=== PATIENT | male | born 1970 | race Caucasian/White ===

== ENCOUNTER 2022-01-14 07:57 | Day surgery (SDC) | payer BC ==
[~2022-01-14 07:57] MED LIST: Acetaminophen 325 MG Tab PO SCH; Lactated Ringers 1,000 ML IV SCH; Lidocaine 1%/Sod Bicarbonate in NS 8.4% 1 ML Syringe IDERM PRN; Pregabalin 25 MG Cap PO SCH; Sodium Chloride 0.9% 10 ML Syringe FLUSH PRN; Sodium Chloride 0.9% 10 ML Syringe FLUSH SCH; oxyCODONE ER 10 MG TAB.ER PO SCH
[2022-01-14] MEDS ORDERED: EPINEPHrine 1 MG/ML SDV ONE (07:59)
[2022-01-14] MEDS ORDERED: Ropivacaine 0.5% 5 MG/ML 30 ML SDV ONE (07:59)
[2022-01-14] MEDS ORDERED: Lidocaine 1%/Sod Bicarbonate in NS 8.4% 1 ML Syringe IDERM PRN (08:22)
[2022-01-14] MEDS ORDERED: Morphine 8 MG, EPINEPHrine 0.3 MG, Cefuroxime 750 MG, Ketorolac 30 MG, Sodium Chloride ... PRN ×5 (08:23)
[2022-01-14] MEDS ORDERED: Sodium Chloride 0.9% 10 ML Syringe FLUSH PRN (08:24)
[2022-01-14] MEDS ORDERED: Acetaminophen 325 MG Tab PO SCH (08:30)
[2022-01-14] MEDS ORDERED: Lactated Ringers 1,000 ML IV SCH (08:30)
[2022-01-14] MEDS ORDERED: Pregabalin 25 MG Cap PO SCH (08:30)
[2022-01-14] MEDS ORDERED: oxyCODONE ER 10 MG TAB.ER PO SCH (08:30)
[2022-01-14] MEDS ORDERED: Ondansetron 4 MG/2 ML SDV IVPUSH PRN ×2 (09:35→11:10)
[2022-01-14] MEDS ORDERED: fentaNYL 100 MCG/2 ML SDV IVPUSH PRN ×2 (09:35→11:10)
[2022-01-14] MEDS ORDERED: HYDROmorphone 0.5 MG/0.5 ML Syringe IVPUSH PRN ×2 (09:35→11:10)
[2022-01-14] MEDS ORDERED: Lidocaine 1% 4 ML ONE (10:23)
[2022-01-14] MEDS ORDERED: fentaNYL 100 MCG/2 ML SDV ONE (10:24)
[2022-01-14] MEDS ORDERED: ceFAZolin 1 GM Vial ONE (10:24)
[2022-01-14] MEDS ORDERED: Midazolam 1 MG/ML 2 ML SDV ONE (10:24)
[2022-01-14] MEDS ORDERED: Propofol 200 MG/20 ML SDV ONE ×3 (10:24→12:00)
[2022-01-14] MEDS ORDERED: Lactated Ringers 1,000 ML ONE (10:29)
[2022-01-14] MEDS ORDERED: Dexamethasone 4 MG/ML 5 ML MDV ONE (11:06)
[2022-01-14] MEDS ORDERED: ePHEDrine 50 MG/ML SDV ONE (11:07)
[2022-01-14] MEDS ORDERED: Ketorolac 30 MG/ML SDV ONE (11:10)
[2022-01-14] MEDS ORDERED: Ondansetron 4 MG/2 ML SDV ONE (11:13)
[2022-01-14] MEDS: Morphine 8 MG, EPINEPHrine 0.3 MG, Cefuroxime 750 MG, Ketorolac 30 MG, Sodium Chloride ... PRN ×10 (11:38→12:09)
[2022-01-14] MEDS: Vancomycin 1 GM SDV ONE ×2 (11:38→12:16)
[2022-01-14] MEDS: Triamcinolone Acetonide 40 MG/ML 1 ML SDV ONE ×2 (11:39→12:30)
[2022-01-14] MEDS: Bupivacaine 0.25% 10 ML SDV ONE ×2 (11:40→12:30)
== END 2022-01-14 16:11 | disposition home or self-care (01) ==
LOC: JD.SDS 07:57
PROVIDERS: ATTEND Orthopaedic Surgery
DX: M17.12 Unilateral primary osteoarthritis, left knee (principal); I10 Essential (primary) hypertension; Z79.899 Other long term (current) drug therapy; Z79.82 Long term (current) use of aspirin
CPT/HCPCS: 0055T; 27447; 73560; 97110; 97116; 97161; A9270; C1713; C1776; J0171; J0690; J0697; J1100; J1885; J2250; J2270; J2405; J2704; J2795; J3010; J3301; J3370; J3490; J7120; 01402; 64450; 76942

== ENCOUNTER 2024-09-16 08:03 | Day surgery (SDC) | payer BC, OTHER ==
[~2024-09-16 08:03] MED LIST changes: -Acetaminophen 325 MG Tab PO SCH; -Lactated Ringers 1,000 ML IV SCH; -Lidocaine 1%/Sod Bicarbonate in NS 8.4% 1 ML Syringe IDERM PRN; -Pregabalin 25 MG Cap PO SCH; -oxyCODONE ER 10 MG TAB.ER PO SCH
[2024-09-16] MEDS: Lactated Ringers 1,000 ML IV SCH (08:30)
[2024-09-16] MEDS ORDERED: Ketorolac 30 MG/ML SDV ONE (09:32)
[2024-09-16] MEDS ORDERED: Ondansetron 4 MG/2 ML SDV ONE (09:32)
[2024-09-16] MEDS ORDERED: Propofol 200 MG/20 ML SDV ONE ×3 (09:33→11:13)
[2024-09-16] MEDS ORDERED: Lidocaine 2% 5 ML SDV ONE (09:33)
[2024-09-16] MEDS ORDERED: EPINEPHrine 1 MG/ML SDV ONE (09:33)
[2024-09-16] MEDS ORDERED: Ropivacaine 0.5% 5 MG/ML 30 ML SDV ONE (09:33)
[2024-09-16] MEDS ORDERED: Midazolam 1 MG/ML 2 ML SDV ONE (09:35)
[2024-09-16] MEDS ORDERED: fentaNYL 100 MCG/2 ML SDV IVPUSH PRN (10:02)
[2024-09-16] MEDS ORDERED: HYDROmorphone 0.5 MG/0.5 ML Syringe IVPUSH PRN (10:02)
[2024-09-16] MEDS ORDERED: Ondansetron 4 MG/2 ML SDV IVPUSH PRN (10:02)
[2024-09-16] MEDS ORDERED: ceFAZolin 2 GM Vial ONE (10:16)
[2024-09-16] MEDS ORDERED: Phenylephrine 1% 10 MG/ML SDV ONE (10:42)
[2024-09-16] MEDS ORDERED: Lactated Ringers 1,000 ML ONE (11:28)
[2024-09-16] MEDS: Morphine 8 MG, EPINEPHrine 0.3 MG, Cefuroxime 750 MG, Ketorolac 30 MG, Sodium Chloride ... PRN (11:30)
[2024-09-16] MEDS: VANCOmycin 1 GM SDV ONE (11:36)
[2024-09-16] MEDS: Tranexamic Acid 1,000 MG/10 ML Vial ONE (11:36)
[2024-09-16] MEDS: Acetaminophen/HYDROcodone 325-5 MG Tab PO PRN (15:59)
== END 2024-09-16 16:08 | disposition home or self-care (01) ==
LOC: JD.SDS 08:03
PROVIDERS: ATTEND Orthopaedic Surgery
DX: M17.11 Unilateral primary osteoarthritis, right knee (principal); I10 Essential (primary) hypertension
CPT/HCPCS: 73560-26-RT; 73560-RT; 97110-GP; 97116-GP; 97162-GP; A9270-GY; J0171; J0690; J0697; J1885; J2250; J2272; J2371; J2405; J2704; J2795; J3490; J7120